=== PATIENT | male | born 1995 | race Caucasian/White ===

== ENCOUNTER 2019-05-13 20:48 | Emergency (ER) | payer OTHER ==
[~2019-05-13] VITALS: Ht 188 cm; Wt 106.8 kg
[2019-05-13 20:49] VITALS: BP 138/84
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
[2019-05-13] MEDS ORDERED: ACETAMINOPHEN 325 MG TAB PO ONE (23:45)
== END 2019-05-13 23:43 | disposition home or self-care (01) ==
LOC: M ED 20:48
DX: S06.0X0A Concussion without loss of consciousness, initial encounter (principal); S16.1XXA Strain of muscle, fascia and tendon at neck level, initial encounter; V43.53XA Car driver injured in collision with pick-up truck in traffic accident, initial encounter; Y92.410 Unspecified street and highway as the place of occurrence of the external cause; F17.210 Nicotine dependence, cigarettes, uncomplicated